=== PATIENT | male | born 1985 | race Caucasian/White ===

== ENCOUNTER 2025-04-01 17:58 | Emergency (ER) | payer MEDICAID, SELFPAY ==
[2025-04-01 18:05] VITALS: BP 141/78; PULSE 77; RESP 16; TEMP 37; O2SAT 100
--- NOTE | 2025-04-01 18:47 | ED.GENADULT ---
HPI - General Adult General Chief complaint: Urogenital-Male Stated complaint: STD Testing Time Seen by Provider: 04/01/25 18:20 Source: patient and RN notes reviewed Mode of arrival: ambulatory Limitations: no limitations History of Present Illness HPI narrative: 39-year-old male patient presents today complaining a one-week history of intermittent suprapubic discomfort that he states improves after bowel movement. Diarrhea started last night and he has had a fair amount today. Denies blood or mucus in the loose stool. He was also experiencing some nausea yesterday, started smoking some marijuana, started coughing, which lead to 1 episode of vomiting. He is no longer nauseated and is not experiencing any additional vomiting episodes. Denies fever. He started experiencing some dysuria today. Denies urethral discharge, testicular pain, swelling, hematuria. States he has been having frequent unprotected intercourse 12 new partners over the last 6 weeks. States he also has a herpes outbreak on his penis that started 2 days ago and is out of his Valtrex, would like a refill. Patient has been on Depakote for several years, prescribed by previous PCP. States he did not want to be on it anymore and stopped it on his own 4 days ago. Related Data Home Medications ?Medication ?Instructions ?Recorded ?Confirmed ?Last Taken ?Type lisinopril 5 mg tablet 5 mg PO DAILY 04/01/25 04/01/25 Unknown History omeprazole 20 mg capsule,delayed 20 mg PO DAILY 04/01/25 04/01/25 Unknown History release Allergies Allergy/AdvReac Type Severity Reaction Status Date / Time No Known Allergies Allergy Verified 04/01/25 18:19 [facility] Past Medical History Medical History (Updated 04/01/25 @ 18:57 by Adia Caraballo, [facility], ) PTSD (post-traumatic stress disorder) Comments At time of signature, I have reviewed and agree with nursing past medical, surgical, social and family history unless otherwise noted. Please see nursing chart for further information. There is no relevant family history pertinent to the presenting complaint Exam Narrative: GENERAL: Well-appearing, well-nourished, and in no acute distress. HEAD: Normocephalic, atraumatic. EYES: EOMI. No redness or drainage. Conjunctivae normal. ENT: Mucous membranes pink and moist. NECK: Normal AROM. CHEST: No respiratory distress. Clear to auscultation. HEART: Regular rate and rhythm. No murmur appreciated. ABDOMEN: Soft, , nondistended, normal active bowel sounds. Mildly tender left suprapubic area without rebound or guarding. : Exam chaperoned by Aniyah Garibay RN. Left penile shaft has 2 small scabbed lesions. No additional lesions noted. No penile discharge noted. EXTREMITIES: Normal range of motion. No edema. SKIN: Warm, dry, no rash. Capillary refill normal. Normal skin turgor. NEURO: No focal deficits. Alert and oriented x3. Gait steady. PSYCH: Normal affect. No signs of depression or anxiety. Course Course Level of Care: Express Care Visit Vital Signs Vital signs: Vital Signs Temperature 98.6 F 04/01/25 18:05 Pulse Rate 77 04/01/25 18:05 Respiratory Rate 16 04/01/25 18:05 Blood Pressure 141/78 H 04/01/25 18:05 Pulse Oximetry 100 04/01/25 18:05 Oxygen Delivery Room Air 04/01/25 18:05 Temperature 98.6 F 04/01/25 18:05 Pulse Rate 77 04/01/25 18:05 Respiratory Rate 16 04/01/25 18:05 Blood Pressure 141/78 H 04/01/25 18:05 Pulse Oximetry 100 04/01/25 18:05 Oxygen Delivery Room Air 04/01/25 18:05 Reviewed Medical Decision Making MDM Narrative Medical decision making narrative: 39 yo male patient presents today one-week history of intermittent suprapubic discomfort, diarrhea since last night. Also complaining of dysuria that started today with multiple recent sexual partners that or unprotected over the last 6 weeks. Is also complaining an HSV outbreak over last 2 days. Exam shows some mild suprapubic tenderness without rebound or guarding and 2 small scabbed lesions to the left penile shaft. Patient's urine will be sent off for gonorrhea, chlamydia, and Trichomonas. He has been given Rocephin injection to cover for gonorrhea. Prescriptions for Flagyl and doxycycline have been sent to the pharmacy to cover for Trichomonas and chlamydia respectively. Prescription for Valtrex has been sent to the pharmacy for his HSV outbreak as well. Patient is requesting additional testing and treatment for HPV, HIV etc.. Discussed that these tests are not available at this urgent care. Contact information for the [facility] and [facility] STI clinics have been provided. Diarrhea is likely self-limiting, but recommend patient follow-up with his PCP if it persists for longer than 7 days. Also recommend he go to the ER if he notes diarrhea to have blood or mucus or if his abdominal pain becomes more frequent or worsen in intensity. Patient agrees with plan. Vital signs stable. Differential Diagnosis Differential Diagnosis: Gonorrhea, chlamydia, Trichomonas, herpes simplex, gastroenteritis, colitis, diverticulitis, UTI, medication withdrawal Vital Signs Vital Signs: Vital Signs Temperature 98.6 F 04/01/25 18:05 Pulse Rate 77 04/01/25 18:05 Respiratory Rate 16 04/01/25 18:05 Blood Pressure 141/78 H 04/01/25 18:05 Pulse Oximetry 100 04/01/25 18:05 Oxygen Delivery Room Air 04/01/25 18:05 Temperature 98.6 F 04/01/25 18:05 Pulse Rate 77 04/01/25 18:05 Respiratory Rate 16 04/01/25 18:05 Blood Pressure 141/78 H 04/01/25 18:05 Pulse Oximetry 100 04/01/25 18:05 Oxygen Delivery Room Air 04/01/25 18:05 Critical Care Time Critical Care Time Critical Care Time: No Discharge Plan Discharge Clinical Impression: Encounter for screening examination for sexually transmitted infection Diarrhea Qualifiers: Diarrhea type: unspecified type Qualified Code(s): R19.7 - Diarrhea, unspecified Genital HSV Qualifiers: Herpes simplex infection site: penis Qualified Code(s): A60.01 - Herpesviral infection of penis Patient Disposition: Home Condition: Stable Instructions: Antibiotic Form, Genital Herpes Infection (ED), Chlamydia (ED), Gonorrhea (ED) Additional Instructions: Your urine sample has been sent off to test for gonorrhea, chlamydia, and trichomonas infections. These tests can take up to 24 hours to come back. You will be notified by telephone if any of your tests come back positive. You have been treated with Rocephin in urgent care today to cover you for gonorrhea. Prescriptions for Flagyl and doxycycline have been sent to your pharmacy to cover you for trichomonas and chlamydia. If any of your tests come back positive you should need no further treatment. If any of your test come back positive, you will need to notify any partners that you have, and they will need to be tested and treated. If your tests come back negative and you are still experiencing symptoms, please follow-up with your PCP or urologist for further evaluation and treatment. If your symptoms worsen to include fever, worsening abdominal pain, or back pain, please go to the hospital immediately. Your diarrhea should resolve on its own within 1 week. If you develop any blood or mucus in your stool, please go to the ER for further evaluation. Rest and stay hydrated. Please take the Valtrex as prescribed for your HSV outbreak. You have been given information regarding STI clinics in the area for a more thorough screening exam. Patient Language: Sinhala Prescriptions: New doxycycline hyclate 100 mg tablet 100 mg PO BID 7 Days Qty: 14 0RF metronidazole 500 mg tablet 2,000 mg PO ONCE Qty: 4 0RF valacyclovir 500 mg tablet 500 mg PO Q12H 3 Days Qty: 6 0RF No Action lisinopril 5 mg tablet 5 mg PO DAILY omeprazole 20 mg capsule,delayed release(DR/EC) 20 mg PO DAILY Follow-up/Referrals: PHYSICIAN,STRATEGIC DEBRIEFING OFFICER [Primary Care Provider, Internal Medicine]
[2025-04-01] MEDS: cefTRIAXone 500 MG, LIDOCAINE 1% LOCAL INJ 1 ML IM (18:50)
[2025-04-02 20:34] LABS: Trichomonas Vag PCR NOT DETECTED (NOT DETECTE)
== END 2025-04-01 18:57 | disposition home or self-care (01) ==
PROVIDERS: Emergency Provider Nurse Practitioner
DX: R19.7 Diarrhea, unspecified (principal); A60.01 Herpesviral infection of penis; Z11.3 Encounter for screening for infections with a predominantly sexual mode of transmission; F12.90 Cannabis use, unspecified, uncomplicated
CPT/HCPCS: 87491; 87591; 87661; 96372; 99203; G0463; J0696; J2003